=== PATIENT | female | born 2000 | race Caucasian/White ===

== ENCOUNTER 2023-09-18 19:55 | Emergency (ER) | payer MEDICAID, SELFPAY ==
--- NOTE | 2023-09-18 20:06 | XR_ITS ---
Patient: JUSTINA YOU Facility:?[facility] Patient ID:?[id number] Site Patient ID:?[id number]. Site :?2000 Study:?XRay-Extremity Left HAND 3V-09/18/2023 8:42:41 PM Ordering Physician:GAVI Final Report: INDICATION: Trauma. TECHNIQUE: Left hand radiographs, 3 views. COMPARISON: None. FINDINGS: No acute fractures or dislocation. The joint spaces are preserved. No significant joint effusion. The scaphoid appears intact. There is no widening of the scapholunate interval. The carpal arcs are maintained. No significant soft tissue edema or radiopaque foreign bodies. IMPRESSION: No acute fractures or dislocation. Dictated by Leobardo Brand MD @ 09/18/2023 9:04:58 PM Signed by:?Leobardo Brand MD @09/18/2023 9:04:58 PM (Electronic Signature)
--- NOTE | 2023-09-18 20:06 | XR_ITS ---
Patient: JUSTINA YOU Facility:?[facility] Patient ID:?[id number] Site Patient ID:?[id number]. Site :?2000 Study:?XRay-Extremity Left WRIST 3V-09/18/2023 8:44:36 PM Ordering Physician:?DEIDRE Final Report: INDICATION: Trauma. TECHNIQUE: Left wrist radiographs, 3 views. COMPARISON: None. FINDINGS: No acute fractures or dislocation. The joint spaces are preserved. No significant joint effusion. The scaphoid appears intact. No widening of the scapholunate interval. The carpal arcs are maintained No significant soft tissue edema or radiopaque foreign bodies. IMPRESSION: No acute fractures or dislocation. Dictated by Leobardo Brand MD @ 09/18/2023 9:09:14 PM Signed by:?Leobardo Brand MD @09/18/2023 9:09:14 PM (Electronic Signature)
--- NOTE | 2023-09-18 20:06 | ED.FALL ---
HPI - Fall General Time Seen by Provider: 20:06 Date Seen: 09/18/23 Chief Complaint: Fall/Minor Trauma Stated Complaint: Fell down stairs-thinks broke L hand Time Seen by Provider: 09/18/23 19:57 Source: patient and RN notes reviewed Mode of arrival: ambulatory Limitations: no limitations History of Present Illness HPI Narrative: This 23-year-old female is coming to the ER with concern of left hand wrist pain. She states the hand feels numb and tingly. She slipped down a flight of stairs, went down on her buttock, had her left hand wrist during this. She has pain in her left buttock, she states it is not her tailbone. She was ambulatory into the ED, no complaints of right lower extremity pain. She did not hit her head, has no neck or back pain. There was no loss of consciousness. She did not tumble, simply slipped down the stairs. It is her left hand and wrist that were injured. She has had a bit of a difficult day, just found out her Grandma has stage IV cancer and had to have a colostomy today. MD complaint: fall Related Data Home Medications Medication Instructions Recorded Confirmed methimazole 5 mg tablet 5 mg PO DAILY 09/18/23 09/18/23 propranolol 60 mg capsule,24 60 mg PO DAILY 09/18/23 09/18/23 hr,extended release sertraline 50 mg tablet 50 mg PO DAILY 09/18/23 09/18/23 Allergies Allergy/AdvReac Type Severity Reaction Status Date / Time No Known Drug Allergies Allergy Verified 09/18/23 20:14 Review of Systems Status of ROS: Reports: 6 or more systems reviewed and unremarkable except as noted in History and below [facility] Medical History (Updated 09/18/23 @ 21:14 by Suzi Frederick MD) Hyperthyroidism ?E05.90 - Thyrotoxicosis, unspecified without thyrotoxic crisis or storm (ICD-10) Exam Const: Vital Signs, click to edit/add: Vital Signs - 24 hr 09/18/23 20:10 09/18/23 20:30 Temperature 98.0 F 98.0 F Pulse Rate [Right Pulse Oximeter] 75 Respiratory Rate 20 Blood Pressure [Le ft Upper Arm] 110/78 Pulse Oximetry 99 Oxygen Delivery Me thod Room Air Patient is alert, interactive, no apparent distress, ambulatory into the ED with normal gait. Face atraumatic, sclera clear. Symmetrical facial function, speech normal. No midline tenderness over neck or back. Lungs are clear, good air entry, no wheezing crackles. CV regular rate and rhythm, no murmur. Nontender over the clavicles, no pain over shoulders or her elbows. Right forearm and hand normal. She complains of some pain in the right wrist in generally into the right hand, can feel light touch sensation, did not mobilize her left wrist or hand due to her complaint of pain. See no evidence of any swelling or bruising anywhere at this time. Can straight leg raise in the bed. Has pain over the upper right gluteus muscle, nothing for bony tenderness. No midline tenderness over the spine, no SI joint tenderness. See no evidence of any abrasion or bruising yet. Documenting provider has reviewed patient's vital signs: yes Course Course ED Course: Patient has taken nothing for pain, will give her 1000 mg Tylenol, will get her an ice pack. We will get left wrist and left hand x-rays done to ensure no underlying fracture. Reevaluation(s) Time of Reevaluation #1: 21:09 Reevaluation #1: Reviewed with patient that the x-rays were read is negative for fracture. She is surprised, states her wrist does hurt quite a bit. We did discuss that she certainly could of contused the area with the fall, certainly could be underlying wrist sprain. We discussed use of a wrist splint, follow up in 7-10 days for re-x-ray if she was not improving with conservative management. Vital Signs Vital signs: Initial Vital Signs Temperature 98.0 F 09/18/23 20:10 Temperature Source Temporal Artery Scan 09/18/23 20:10 Pulse Rate 75 09/18/23 20:10 Respiratory Rate 20 09/18/23 20:10 Blood Pressure 110/78 09/18/23 20:10 Blood Pressure Mean 88 09/18/23 20:10 Blood Pressure Position Sitting 09/18/23 20:10 Pulse Oximetry 99 09/18/23 20:10 Oxygen Delivery Method Room Air 09/18/23 20:10 Vital Signs Temperature 98.0 F 09/18/23 20:10 Pulse Rate 75 09/18/23 20:10 Respiratory Rate 20 09/18/23 20:10 Blood Pressure 110/78 09/18/23 20:10 Pulse Oximetry 99 09/18/23 20:10 Oxygen Delivery Method Room Air 09/18/23 20:10 Temperature 98.0 F 09/18/23 20:30 Pulse Rate 75 09/18/23 20:10 Respiratory Rate 20 09/18/23 20:10 Blood Pressure 110/78 09/18/23 20:10 Pulse Oximetry 99 09/18/23 20:10 Oxygen Delivery Method Room Air 09/18/23 20:10 Medications Administered Medications: Generic Name Dose Route Start Last Admin Trade Name Portia PRN Reason Stop Dose Admin Acetaminophen 1,000 mg 09/18/23 20:06 09/18/23 20:30 Acetaminophen 500 Mg Tablet PO 09/18/23 20:07 1,000 mg ONCE ONE Administration MDM - Fall Imaging Data XR left wrist: Attestation: I have reviewed the pertinent imaging results. My impression: I do not appreciate any acute pathology on my preliminary read. Radiologist's impression: Patient: [facility] Facility:?[facility] Patient ID:?[id number] Site Patient ID:?[id number]. Site :?2000 Study:?XRay Extremity Left WRIST 3V-09/18/2023 8:44:36 PM Ordering Physician:GAVI Final Report: INDICATION: Trauma. TECHNIQUE: Left wrist radiographs, 3 views. COMPARISON: None. FINDINGS: No acute fractures or dislocation. The joint spaces are preserved. No significant joint effusion. The scaphoid appears intact. No widening of the scapholunate interval. The carpal arcs are maintained No significant soft tissue edema or radiopaque foreign bodies. IMPRESSION: No acute fractures or dislocation. Dictated by Leobardo Brand MD @ 09/18/2023 9:09:14 PM (Electronic Signature) XR left hand: Attestation: I have reviewed the pertinent imaging results. My impression: I see no evidence of any acute fracture my preliminary review. Radiologist's impression: Patient: [facility] Facility:?[facility] Patient ID:?[id number] Site Patient ID:?[id number]. Site :?2000 Study:?XRay Extremity Left HAND 3V-09/18/2023 8:42:41 PM Ordering Physician:?DEIDRE Final Report: INDICATION: Trauma. TECHNIQUE: Left hand radiographs, 3 views. COMPARISON: None. FINDINGS: No acute fractures or dislocation. The joint spaces are preserved. No significant joint effusion. The scaphoid appears intact. There is no widening of the scapholunate interval. The carpal arcs are maintained. No significant soft tissue edema or radiopaque foreign bodies. IMPRESSION: No acute fractures or dislocation. Dictated by Leobardo Brand MD @ 09/18/2023 9:04:58 PM (Electronic Signature) Discharge Plan Discharge Clinical Impression: Fall Qualifiers: Encounter type: initial encounter Qualified Code(s): W19.XXXA - Unspecified fall, initial encounter Left wrist sprain Qualifiers: Encounter type: initial encounter Qualified Code(s): S63.502A - Unspecified sprain of left wrist, initial encounter Patient Disposition: Home, Self-Care Condition: Stable Instructions: Wrist Injury (ED), Wrist Sprain (ED) Additional Instructions: Can use Tylenol/ibuprofen per bottle directions as needed for pain control. Use wrist splint for comfort. Ice/elevate next few days to help relieve any pain/swelling. If you are continuing to have pain in your wrist/hand beyond the next week, if your symptoms are not improving, need to be re-evaluated and likely have x-rays redone. Activity Level: Activity as Tolerated Prescriptions: No Action methimazole 5 mg tablet 5 mg PO DAILY propranolol 60 mg capsule,extended release 24 hr 60 mg PO DAILY sertraline 50 mg tablet 50 mg PO DAILY Follow Up/Referrals: Angie Merrill MD [Primary Care Provider] - Stand Alone Forms: [employer] Info Instructions
[2023-09-18 20:10] VITALS: BP 110/78; PULSE 75; RESP 20; TEMP 36.7; O2SAT 99; BMI 28.3
[2023-09-18 20:30] VITALS: TEMP 36.7
[2023-09-18] MEDS: ACETAMINOPHEN 500 MG TABLET 1000 MG PO (20:30)
[2023-09-18 21:28] VITALS: BP 112/74; PULSE 70; RESP 20; TEMP 36.7; O2SAT 99
[2023-09-18 21:30] VITALS: BP 112/74; PULSE 70; RESP 20; TEMP 36.7
== END 2023-09-18 21:30 | disposition home or self-care (01) ==
PROVIDERS: Emergency Provider Family Medicine; PCP Family Medicine
DX: S63.502A Unspecified sprain of left wrist, initial encounter (principal); W10.9XXA Fall (on) (from) unspecified stairs and steps, initial encounter
CPT/HCPCS: 73110; 73130; 99283; A9270